=== PATIENT | male | born 1970 | race Caucasian/White ===

== ENCOUNTER → 2016-09-27 | Outpatient (CLI) | payer SELFPAY ==
[2016-09-03 16:40] VITALS: BP 138/80
[~2016-09-27] MED LIST: HYDR-965 PO; NAPR500T PO
--- NOTE | 2016-09-27 10:48 | RAD ---
Right hand, 4 views, 09/27/2016: History: Follow-up fracture Comparison is made to a study from 09/03/2016. Again identified is a slightly comminuted fracture of the distal fifth metacarpal. There is moderate volar angulation of the major distal fracture fragment which is unchanged. Mild callus formation has developed at the fracture site. No new fracture or dislocation is identified. IMPRESSION: Developing callus at the site of the angulated fracture of the distal fifth metacarpal.
== END | disposition home or self-care (01) ==
LOC: DXRAD 09:26
PROVIDERS: ATTEND Orthopaedic Surgery
DX: S62.306A Unspecified fracture of fifth metacarpal bone, right hand, initial encounter for closed fracture (principal)
CPT/HCPCS: 73130